=== PATIENT | male | born 1965 | race African-American/Black ===

== ENCOUNTER 2018-05-03 17:04 | Emergency (ER) | payer SELFPAY ==
--- NOTE | 2018-05-03 17:44 | EKG REPORT ---
SEVERITY:- ABNORMAL ECG - SINUS RHYTHM LEFT ATRIAL ABNORMALITY LEFT ANTERIOR FASCICULAR BLOCK LEFT VENTRICULAR HYPERTROPHY : Confirmed by: Raul Mary MD 03-May-2018 17:43:22
[2018-05-03] MEDS ORDERED: METOCLOPRAMIDE HCL ORAL SOLN 10 MG/10 ML UDCUP PO ONE (19:59)
[2018-05-03] MEDS ORDERED: LIDOCAINE 2% VISCOUS SOLN 20 ML UDCUP PO ONE (19:59)
[2018-05-03] MEDS ORDERED: MAG HYDROX/AL HYDROX/SIMETH SUSP 30 ML UDCUP PO ONE (19:59)
--- NOTE | 2018-05-03 20:00 | ER Document Report ---
ED Medical Screen (RME) - General Chief Complaint: Chest Pain Stated Complaint: STOMACH/CHEST PAIN, SORE THROAT Time Seen by Provider: 05/03/18 19:56 TRAVEL OUTSIDE OF THE [place] IN LAST 30 DAYS: No - HPI Notes: 05/03/18 19:59 Patient is a 53-year-old male that presents to the emergency department for chief complaint of chest pain and abdominal pain. Patient reports a sharp burning pain from his epigastrium up into his throat. The pain is worse with eating. He has had a few episodes of vomiting. He reports feeling warm but denies sweating. He denies fevers and chills. He does have a history of acid reflux and states this feels worse. He denies history of cardiac disease. ROS: GENERAL: Denies fever of chills CV: chest pain PHYSICAL EXAMINATION: GENERAL: Well-appearing, well-nourished and in no acute distress. HEAD: Atraumatic, normocephalic. EYES: Pupils equal round extraocular movements intact, conjunctiva are normal. ENT: Nares patent NECK: Normal range of motion LUNGS: No respiratory distress Musculoskeletal: Normal range of motion NEUROLOGICAL: Normal speech, normal gait. PSYCH: Normal mood, normal affect. MDM: Patient seen and examined for rapid initial assessment. Vital signs reviewed. A comprehensive ED assessment and evaluation of the patient, analysis of test results and completion of the medical decision making process will be conducted by additional ED providers. - Related Data Allergies/Adverse Reactions: No Known Drug Allergies Allergy (Unknown, Verified 04/10/14 08:44) Past Medical History - Past Medical History Cardiac Medical History: Reports: Hx Hypertension GI Medical History: Reports: Hx Hepatitis - c Musculoskeltal Medical History: Reports Hx Musculoskeletal Deformity, Reports Hx Musculoskeletal Trauma Psychiatric Medical History: Reports: Hx Depression Traumatic Medical History: Reports: Hx Fractures Infectious Medical History: Reports: Hx Hepatitis - c Past Surgical History: Reports: Hx Orthopedic Surgery - R wrist - Immunizations Hx Diphtheria, Pertussis, Tetanus Vaccination: Yes Physical Exam - Vital signs Vitals: Temp Pulse Resp BP Pulse Ox 98.4 F 66 16 249/102 H 98 05/03/18 17:08 05/03/18 17:08 05/03/18 17:08 05/03/18 17:08 05/03/18 17:08 Course - Vital Signs Vital signs: Temp Pulse Resp BP Pulse Ox 98.4 F 66 16 249/102 H 98 05/03/18 17:08 05/03/18 17:08 05/03/18 17:08 05/03/18 17:08 05/03/18 17:08 Doctor's Discharge - Discharge Referrals: KODAK GAYLE FNP [Primary Care Provider] - Follow up as needed
--- NOTE | 2018-05-03 20:22 | RADIOLOGY REPORT (SQ) ---
EXAM DESCRIPTION: CHEST SINGLE VIEW COMPLETED DATE/TIME: 05/03/2018 8:11 pm REASON FOR STUDY: chest pain COMPARISON: 09/29/2013 EXAM PARAMETERS: NUMBER OF VIEWS: One view. TECHNIQUE: Single frontal radiographic view of the chest acquired. RADIATION DOSE: NA LIMITATIONS: None. FINDINGS: LUNGS AND PLEURA: No opacities, masses or pneumothorax. No pleural effusion. MEDIASTINUM AND HILAR STRUCTURES: No masses. Contour normal. HEART AND VASCULAR STRUCTURES: Heart normal in size. Normal vasculature. BONES: No acute findings. HARDWARE: None in the chest. OTHER: No other significant finding. IMPRESSION: NO ACUTE RADIOGRAPHIC FINDING IN THE CHEST. TECHNICAL DOCUMENTATION: JOB ID: [id number] [employer]- All Rights Reserved Reading location - IP/workstation name: [email or web address]
[2018-05-03 20:36] LABS: ABSOLUTE EOSINOPHILS # (AUTO) 0.1 10^3/uL (0.0-0.6); ABSOLUTE LYMPHOCYTES (AUTO) 2.3 10^3/uL (0.5-4.7); ABSOLUTE MONOCYTES (AUTO) 0.7 10^3/uL (0.1-1.4); ABSOLUTE NEUT (AUTO) 6.3 10^3/uL (1.7-8.2); BASOPHILS % (AUTO) 0.4 % (0-2); EOSINOPHILS % (AUTO) 1.3 % (0-6); HEMATOCRIT 43.2 % (37.9-51.0); HEMOGLOBIN 14.8 g/dL (13.5-17.0); LYMPHOCYTES % (AUTO) 24.6 % (13-45); MEAN CORPUSCULAR HEMOGLOBIN 33.4 pg (27.0-33.4); MEAN CORPUSCULAR HGB CONC 34.2 g/dL (32.0-36.0); MEAN CORPUSCULAR VOLUME 98 fl (80-97); MONOCYTES % (AUTO) 7.3 % (3-13); PLATELET COUNT 233 10^3/uL (150-450); RED BLOOD COUNT 4.42 10^6/uL (4.35-5.55); RED CELL DISTRIBUTION WIDTH 11.9 % (11.5-14.0); SEGMENTED NEUTROPHILS % (AUTO) 66.4 % (42-78); TOTAL CELLS COUNTED % (AUTO) 100 %; WHITE BLOOD COUNT 9.5 10^3/uL (4.0-10.5)
[2018-05-03 21:01] LABS: ALANINE AMINOTRANSFERASE 35 U/L (21-72); ALBUMIN 4.6 g/dL (3.5-5.0); ALKALINE PHOSPHATASE 103 U/L (38-126); ANION GAP 11 (5-19); ASPARTATE AMINO TRANSFERASE 35 U/L (17-59); BILIRUBIN,DIRECT 0.3 mg/dL (0.0-0.4); BILIRUBIN,TOTAL 0.7 mg/dL (0.2-1.3); BLOOD UREA NITROGEN 18 mg/dL (7-20); CALCIUM 9.7 mg/dL (8.4-10.2); CARBON DIOXIDE 28 mmol/L (22-30); CHLORIDE 98 mmol/L (98-107); GLUCOSE 97 mg/dL (75-110); LIPASE 121.7 U/L (23-300); POTASSIUM 4.4 mmol/L (3.6-5.0); SODIUM 136.9 mmol/L (137-145); TOTAL PROTEIN 7.1 g/dL (6.3-8.2)
[2018-05-03] MEDS ORDERED: SUCRALFATE 1 GM TABLET PO ONE (21:48)
[2018-05-03] MEDS ORDERED: FAMOTIDINE 20 MG TABLET PO ONE (21:48)
--- NOTE | 2018-05-03 21:54 | ER Document Report ---
ED General - General Chief Complaint: Chest Pain Stated Complaint: STOMACH/CHEST PAIN, SORE THROAT Time Seen by Provider: 05/03/18 19:56 Notes: Patient is a 53-year-old male with a past history of hypertension, HIV, current everyday smoker, presents with several weeks of epigastric abdominal pain with intermittent symptoms of burning in his chest worsened with lying flat and with eating. States that his symptoms started gradually and have remained relatively unchanged over that period of time. Nothing is new or different regarding his s ymptoms that prompted a visit to the emergency department [facility]. Has not seen his primary doctor regarding today's concerns. Has not tried him to treat his symptoms. Notes certain types of foods such as orange juice or spicy food dramatically worsen his symptoms. Denies any known history of coronary artery disease. Denies any associated shortness of breath, diaphoresis, radiation of the pain or vomiting. TRAVEL OUTSIDE OF THE [place] IN LAST 30 DAYS: No - Related Data Allergies/Adverse Reactions: No Known Drug Allergies Allergy (Unknown, Verified 04/10/14 08:44) Past Medical History - General Information source: Patient - Social History Smoking Status: Current Every Day Smoker Chew tobacco use (# tins/day): No Frequency of alcohol use: Occasional Drug Abuse: None Lives with: Spouse/Significant other Family History: CAD, DM, Hyperlipidemia, Hypertension Patient has suicidal ideation: No Patient has homicidal ideation: No - Past Medical History Cardiac Medical History: Reports: Hx Hypercholesterolemia, Hx Hypertension Renal/ Medical History: Denies: Hx Peritoneal Dialysis GI Medical History: Reports: Hx Gastroesophageal Reflux Disease, Hx Hepatitis - c Musculoskeletal Medical History: Reports Hx Musculoskeletal Deformity, Reports Hx Musculoskeletal Trauma Psychiatric Medical History: Reports: Hx Depression Traumatic Medical History: Reports: Hx Fractures Infectious Medical History: Reports: Hx Hepatitis - c Past Surgical History: Reports: Hx Orthopedic Surgery - R wrist - Immunizations Hx Diphtheria, Pertussis, Tetanus Vaccination: Yes Hx Pneumococcal Vaccination: 04/23/08 Review of Systems - Review of Systems Notes: Constitutional: Negative for fever. HENT: Negative for sore throat. Eyes: Negative for visual changes. Cardiovascular: Positive for chest pain. Respiratory: Negative for shortness of breath. Gastrointestinal: Positive for upper abdominal pain and nausea Genitourinary: Negative for dysuria. Musculoskeletal: Negative for back pain. Skin: Negative for rash. Neurological: Negative for headaches, weakness or numbness. 10 point ROS negative except as marked above and in HPI. Physical Exam - Vital signs Vitals: Temp Pulse Resp BP Pulse Ox 98.4 F 66 16 249/102 H 98 05/03/18 17:08 05/03/18 17:08 05/03/18 17:08 05/03/18 17:08 05/03/18 17:08 Interpretation: Hypertensive - Patient did not take his home medications today Notes: PHYSICAL EXAMINATION: GENERAL: Well-appearing, well-nourished and in no acute distress. HEAD: Atraumatic, normocephalic. EYES: Pupils equal round and reactive to light, extraocular movements intact, sclera anicteric, conjunctiva are normal. ENT: nares patent, oropharynx clear without exudates. Moist mucous membranes. NECK: Normal range of motion, supple without lymphadenopathy LUNGS: Breath sounds clear to auscultation bilaterally and equal. No wheezes rales or rhonchi. HEART: Regular rate and rhythm without murmurs ABDOMEN: Soft, nontender, normoactive bowel sounds. No guarding, no rebound. No masses appreciated. EXTREMITIES: Normal range of motion, no pitting or edema. No cyanosis. NEUROLOGICAL: No focal neurological deficits. Moves all extremities sponta neously and on command. PSYCH: Normal mood, normal affect. SKIN: Warm, Dry, normal turgor, no rashes or lesions noted. Course - Re-evaluation Re-evalutation: 05/03/18 21:53 Patient presents with epigastric abdominal pain with associated reflux symptoms most consistent with likely gastritis. Patient has no focal abdominal tender ness on examination. Patient reports that his symptoms are dramatically worsen when he lies flat at night and feels like the pain comes up into his chest when he does so. EKG, chest x-ray troponin all normal. Patient's blood pressure is notably elevated although he reports this is quite normal for him particular given that he has not taken his blood pressure medications today. Lipase is normal. No LFT changes. Based on history and exam, I do not suspect ACS, pulmonary embolus, SBO, mesenteric ischemia, acute pancreatitis, biliary pathology, or an abdominal aortic dissection. Patient has had improvement of symptoms here with a GI cocktail. At this time will discharge with return precau tions and follow-up recommendations. Verbal discharge instructions given a the bedside and opportunity for questions given. Medication warnings reviewed. Patient is in agreement with this plan and has verbalized understanding of return precautions and the need for primary care follow-up in the next 24-72 hours. - Vital Signs Vital signs: Temp Pulse Resp BP Pulse Ox 98.4 F 66 12 185/97 H 99 05/03/18 17:08 05/03/18 17:08 05/03/18 22:01 05/03/18 22:01 05/03/18 22:01 - Laboratory Result Diagrams: 05/03/18 20:28 05/03/18 20:28 Laboratory results interpreted by me: 05/03/18 05/03/18 20:28 20:28 MCV 98 H Sodium 136.9 L - Diagnostic Test Radiology reviewed: Image reviewed, Reports reviewed Radiology results interpreted by me: 05/03/18 21:53 Chest x-ray: No acute infiltrate or pneumothorax - EKG Interpretation by Me Additional EKG results interpreted by me: 05/03/18 21:53 Sinus rhythm, rate 59. LVH. No ST elevations or depressions. QTC 401. Discharge - Discharge Clinical Impression: Epigastric abdominal pain, Chest discomfort Gastroesophageal reflux Qualifiers: Esophagitis presence: esophagitis presence not specified Qualified Code(s): K21.9 - Gastro-esophageal reflux disease without esophagitis Condition: Good Disposition: HOME, SELF-CARE Additional Instructions: Your symptoms appear to be most consistent with stomach or upper intestinal irritation. Please begin taking famotidine 40 mg in the morning and 40 mg at night. Please take Carafate that has been prescribed prior to meals. You may also take medicine such as Pepto-Bismol or Tums to assist with your pain. Please return to emergency department immediately if you have worsening of your pain, shortness of breath, vomiting, become unable to exert yourself due to pain or difficulty breathing, you pass out, or have any pain that radiates into your arms, jaw, or back. Please also return if you have any additional symptoms that are concerning to you. As we have discussed, the most important thing is lifestyle changes. You need t o avoid smoking, sodas, tea, coffee, alcohol, spicy foods, and acidic foods such as citrus fruits, tomato based products, berries, and most fruit juices. Prescriptions: Famotidine 40 mg PO BID #60 tablet Sucralfate [Carafate 1 gm Tablet] 1 gm PO ACHS #120 tablet Forms: Return to Work Referrals: KODAK GAYLE FNP [Primary Care Provider] - Follow up in 3-5 days
[2018-05-03 22:35] VITALS: BP 185/97
== END 2018-05-03 22:40 | disposition home or self-care (01) ==
LOC: ER 17:04
DX: R07.9 Chest pain, unspecified (principal); R10.13 Epigastric pain; K21.9 Gastro-esophageal reflux disease without esophagitis; J02.9 Acute pharyngitis, unspecified; F17.200 Nicotine dependence, unspecified, uncomplicated; B20 Human immunodeficiency virus [HIV] disease; I10 Essential (primary) hypertension; E78.00 Pure hypercholesterolemia, unspecified; Z86.19 Personal history of other infectious and parasitic diseases
CPT/HCPCS: 93005; 99285; 36415; 83690; 85025; 80053; 84484; 71045; 93010; J3490